=== PATIENT | female | born 1990 | race African-American/Black ===

== ENCOUNTER 2023-11-19 05:54 | Inpatient (IN) | payer OTHER, MEDICAID, SELFPAY ==
[2023-11-19] VITALS (70 sets, daily range): BP systolic 101–143; BP diastolic 49–99; PULSE 74–99; RESP 16–19; TEMP 36.3–36.8; O2SAT 97–100; BMI 24.3
[2023-11-19 06:56] LABS: Basophils Percent Auto 0.4 % (0.2-1.2); Eosinophils Absolute Auto 0.1 K/mm3 (0-0.3); Eosinophils Percent Auto 1.7 % (0-4.4); Hematocrit 27.8 % (37.0-47.0); Hemoglobin 8.9 g/dL (12.0-15.0); Immature Granulocyte Absolute 0.07 K/mm3 (0.00-0.031); Immature Granulocyte Percent A 0.8 % (0-0.5); Lymphocytes Absolute Auto 2.19 K/mm3 (0.9-3.2); Lymphocytes Percent Auto 26.2 % (18.3-44.2); Mean Corpuscular Volume 78.1 fl (80-100); Mean Platelet Volume 10.4 fl (7.4-10.4); Monocytes Absolute Auto 0.8 K/mm3 (0.1-0.6); Monocytes Percent Auto 9.7 % (2.6-8.5); Neutrophils Absolute Auto 5.1 K/mm3 (1.3-6.7); Neutrophils Percent Auto 61.2 % (45.5-73.1); Platelet Count Result 260 k/mm3 (150-375); Red Blood Count 3.56 M/mm3 (4.2-5.4); Red Cell Distribution Width 13.5 % (11.5-14.5); White Blood Count 8.4 K/mm3 (4.5-10.0)
--- NOTE | 2023-11-19 07:13 | WPDOBADMIT ---
Obstetrics - Admit Note Admission Note: record reviewed. No pertinent additions to the history and/or any subsequent changes in the physical findings that are not consistent with the expected course of the were found. Additions to the history and/or subsequent changes in the physical findings follow. IOL, cholestasis, SVE 2-3/60/-3 AROM, moderate amount of clear/bloody fluid, bright light negative, bedside US vertex, anticipate vaginal delivery
[2023-11-19] MEDS: OXYTOCIN 30 UNITS/NS 500 ML 30 UNITS/500 ML BAG IV CONT (07:49)
[2023-11-19] MEDS: LACTATED RINGERS 1,000 ML 125 ML IV CONT (07:50)
[2023-11-19] MEDS: IRON SUCROSE COMPLEX 400 MG in SODIUM CHLORIDE 0.9% IV 250 ML 108 MG IVPB (08:25)
--- NOTE | 2023-11-19 10:54 | PM.OBPNLAB ---
Pain Control Date/time seen: 11/19/23 10:54 at pt bs to evaluate, pt no longer bleeding, no blood on pad, discussed pt case with dr. payne and then pt. lower hemoglobin will hang blood after above note called into room for decreased heart tones, cervical exam revealed large blood clots in vagina, dr. payne called and pt moved to OR, discussed with pt need for section
--- NOTE | 2023-11-19 11:51 | P.PCNOB_ITS ---
OB - Delivery Note Procedure Delivery date: 11/19/23 Pre-op diagnosis: Placental Abruption and Other (cholestasis) Post-op Diagnosis: Same Induction method: Per Pitocin Protocol Delivery augmentation: Rupture of Membranes Delivery monitor: External FHT and External Uterine Prior to decision for section, ACOG/SMFM labor guidelines were considered and discussed with the patient and staff. Decision made to proceed with the section.: Yes Procedure Performed: Primary Primary branch: low cervical, transverse Surgeon: Sergio Duffy MD Anesthesia type: General Description of Procedure/Findings: Called by CNM regarding persistent bradycardia and concern for placental abruption. The decision to proceed with emergent c section was made and discussed with patient by CNM. The patient was taken to the operating room where she was placed in the dorsal supine position with a leftward tilt. The electronic monitor was placed and heart rate was found to be reassuring. She was prepped and draped in the normal sterile fashion, and general anesthesia was initiated. A Pfannenstiel skin incision was made with the scalpel and carried through to the underlying layer of fascia with the scalpel. The fascia was incised in the midline and the incision extended laterally bluntly. The rectus muscles were then in the midline, and the peritoneum entered bluntly. The peritoneal incision was extended superiorly and inferiorly with good visualization of the bladder. A Couvelaire appearing uterus was encountered on entrance into the abdomen. The lower uterine segment was incised in a transverse fashion with the scalpel. The uterine incision was then extended laterally. The infant's head was elevated and delivered atraumatically. The remainder of the was then delivered without difficulty, and the 's nose and mouth were suctioned with the bulb suction. The umbilical cord was doubly clamped and cut. The was then handed off to the waiting nursing staff. Specimens then obtained as listed below. The placenta was then removed manually and the uterus was exteriorized and cleared of all clots and debris. The uterine incision was repaired with 0- Monocryl in a running, interlocked fashion. A second layer of the same suture was used to imbricate and ensure hemostasis. The posterior cul-de-sac was manually cleared of all clots and debris. The uterus was returned to the abdomen. The gutters were then manually cleared of all clots and debris.? The uterine incision was visualized to be hemostatic. The fascia was reapproximated with 0-Vicryl in a running fashion. The subcutaneous tissues were irrigated with warmed normal saline, and hemostasis was assured. The skin was closed with 4-0 monocryl in a running subcuticular stitch. Fundal pressure was applied to express remaining intrauterine clots and debris. The patient tolerated the procedure well. Sponge, lap, and needle counts were correct times three per nursing. The patient was taken to the recovery room in stable condition. Specimen: Yes Estimated Blood Loss: 950 Pathology: Yes Complications: No immediate complications Condition: Stable Disposition: Floor [place] Baby Date of : 11/19/23 Weeks of gestation at delivery: 36 gender: Female presentation: vertex Placenta delivery description: Expressed
--- NOTE | 2023-11-19 11:59 | WPDHPUPDATE1 ---
History and Physical Update Update Date/Time: 11/19/23 11:59 History and Physical has been reviewed, including an updated exam of the patient. There are NO changes in the patient's condition. Risks, benefits, and alternatives have been discussed and questions answered. Patient agrees to proceed with procedure.
--- NOTE | 2023-11-19 12:00 | PM.IMHP ---
H&P: HPI History of Present Illness Date/Time: 11/19/23 12:00 Chief Complaint: vaginal bleeding during MIL for cholestasis of Narrative: Patient presented for MIL for cholestasis of , started with pitocin and augmented with AROM. Per CNM, bloody fluid encountered on AROM. FHR category I after AROM. Alerted that patient had passed 470ml blood clot with no continued bleeding. On SVE by CNM, large amount of blood clots were encountered. A bradycardia was noted and was unresolved with IUR. Review of Systems Review of Systems: All systems reviewed & are unremarkable except as noted in HPI and below PMFSH Family History Family History Mother Breast cancer Social History Social History Smoking status: Never smoker Second hand tobacco smoke exposure: No Substance use: never Do You Feel Safe in your Home?: Yes Lack of Transportation: No Lack of Food: Never True Current Housing: I Have Housing Concerned About Future Housing: No Difficulty Paying Gas/Electric Bills: No Difficulty Paying for Meds: No Currently Unemployed: No Education: Bachelor's Degree Difficulty w/ Childcare or Family Care: No Spiritual care concerns: No Meds Home Medications and Allergies Home Medications Medication Instructions Recorded Confirmed Type ursodiol 300 mg capsule 300 mg PO TID 11/15/23 11/15/23 History valacyclovir 500 mg tablet 500 mg PO Q12H 11/15/23 11/15/23 History (Valtrex) Allergies Allergy/AdvReac Type Severity Reaction Status Date / Time No Known Allergies Allergy Verified 11/15/23 13:40 Vital Signs Vital Signs - 24 hr 11/19/23 07:07 11/19/23 07:14 11/19/23 07:29 Pulse Rate 79 76 78 Blood Pressure 126/80 119/70 121/73 Oxygen Delivery 11/19/23 07:45 11/19/23 07:59 11/19/23 08:14 Pulse Rate 77 90 84 Blood Pressure 124/70 118/74 120/72 Oxygen Delivery 11/19/23 08:29 11/19/23 08:44 11/19/23 08:59 Pulse Rate 80 80 74 Blood Pressure 124/72 116/62 122/71 Oxygen Delivery 11/19/23 09:14 11/19/23 09:29 11/19/23 09:45 Pulse Rate 83 79 87 Blood Pressure 123/74 119/67 101/49 L Oxygen Delivery 11/19/23 09:59 11/19/23 10:15 11/19/23 10:29 Pulse Rate 83 82 77 Blood Pressure 119/80 117/78 113/70 Oxygen Delivery 11/19/23 10:44 11/19/23 09:50 Pulse Rate 78 Blood Pressure 105/60 Oxygen Delivery Room Air H&P: Results Labs Labs: Short CBC 11/19/23 Range/Units 06:35 WBC 8.4 (4.5-10.0) K/mm3 Hgb 8.9 L (12.0-15.0) g/dL Hct 27.8 L (37.0-47.0) % Plt Count 260 (150-375) k/mm3 Assessment and Plan Assessment and plan (1) Placental abruption: Qualifiers: Trimester: third trimester Qualified Code(s): O45.93 - Premature separation of placenta, unspecified, third trimester Code(s): O45.90 - Premature separation of placenta, unspecified, unspecified trimester Status: Acute Assessment and Plan: - concern for placental abruption given large amount of blood clots and bradycardia - decision made to proceed wtih emergent c section (2) bradycardia during labor: Status: Acute Assessment and Plan: - terminal bradycardia, not improved with intrauterine resuscitation - decision made to proceed with emergent c section - will undergo general anesthesia
[2023-11-19] MEDS: LIDOCAINE 5% PATCH 1 PATCH TRANSDERM (12:45)
[2023-11-19] MEDS: HYDROmorphon 0.2MG/ML PCA(*CRX 6 MG/30 ML PCA.VIAL IV CONT (12:49)
--- NOTE | 2023-11-19 13:26 | WPDANESEPPF ---
Anes - Initial Pre Proc Eval Procedure: Operation Date: 11/19/23 10:55 Proposed Procedures p Section - Sergio Duffy MD Date/Time: 11/19/23 13:27 Surgeon: Claribel Maradiaga MD Pre Op Diagnosis: IOL Patient Data Age: 33 Gender: F Height: 1.68 m Weight: 68.5 kg Last Vital Signs Pulse 78 11/19/23 12:59 Resp 19 11/19/23 12:49 BP 122/84 11/19/23 12:59 Pulse Ox 99 11/19/23 13:25 O2 Del Method Room Air 11/19/23 09:50 Allergies Allergy/AdvReac Type Severity Reaction Status Date / Time No Known Allergies Allergy Verified 11/15/23 13:40 Home Medications Medication Instructions Recorded Confirmed Type ursodiol 300 mg capsule 300 mg PO TID 11/15/23 11/15/23 History valacyclovir 500 mg tablet 500 mg PO Q12H 11/15/23 11/15/23 History (Valtrex) Laboratory Tests 11/19/23 06:35 WBC 8.4 K/mm3 (4.5-10.0) RBC 3.56 L M/mm3 (4.2-5.4) Hgb 8.9 L g/dL (12.0-15.0) Hct 27.8 L % (37.0-47.0) MCV 78.1 L fl (80-100) MCH 25.0 L pg (26-34) MCHC 32.0 g/dl (32-36) RDW 13.5 % (11.5-14.5) Plt Count 260 k/mm3 (150-375) MPV 10.4 fl (7.4-10.4) Immature Gran % (Auto) 0.8 H % (0-0.5) Neut % (Auto) 61.2 % (45.5-73.1) Lymph % (Auto) 26.2 % (18.3-44.2) Holmes % (Auto) 9.7 H % (2.6-8.5) Eos % (Auto) 1.7 % (0-4.4) Baso % (Auto) 0.4 % (0.2-1.2) Lymph # (Auto) 2.19 K/mm3 (0.9-3.2) Holmes # (Auto) 0.8 H K/mm3 (0.1-0.6) Eos # (Auto) 0.1 K/mm3 (0-0.3) Baso # (Auto) 0.0 K/mm3 (0.0-0.1) Abs Immat Gran (auto) 0.07 H K/mm3 (0.00-0.031) Absolute Neuts (auto) 5.1 K/mm3 (1.3-6.7) Absolute Nucleated RBC 0.000 K/mm3 (0.0-0.012) Nucleated RBC % 0.0 % (0.0-0.2) RPR Pending Blood Type A Positive Antibody Screen Negative Crossmatch See Detail Patient hx anesthesia problems: none Family hx anesthesia problems: none Results Review: All pre-operative results and documents have been reviewed as part of the pre-operative evaluation. [facility] Family History Family History Mother Breast cancer Social History Social History Smoking status: Never smoker Second hand tobacco smoke exposure: No Substance use: never Do You Feel Safe in your Home?: Yes Lack of Transportation: No Lack of Food: Never True Current Housing: I Have Housing Concerned About Future Housing: No Difficulty Paying Gas/Electric Bills: No Difficulty Paying for Meds: No Currently Unemployed: No Education: Bachelor's Degree Difficulty w/ Childcare or Family Care: No Spiritual care concerns: No Anes - Eval Final PreProcedure Day of Procedure 11/19/23 13:27 Patient weight: normal Airway: Mallampati scale class II Neurological: alert and oriented ASA classification: II Emergent: yes Anesthetic plan: proceed Anesthesia type and monitoring: general and standard monitoring Results Review: All pre-operative results and documents have been reviewed as part of the pre-operative evaluation. Emergency C section for placental abruption, dec FHT. Pt without epidural, emergent GA. This note entered late due to emergent nature of C section. Informed Consent: The patient's anesthetic plan and its attendant risks and benefits were discussed with the patient/family/POA. Questions were solicited and answers provided to the satisfaction of the patient/family/POA.
[2023-11-19] MEDS: HYDROmorphon 0.2MG/ML PCA(*CRX 6 MG/30 ML PCA.VIAL 1 MG IV CONT ×2 (14:00→23:50)
--- NOTE | 2023-11-19 16:52 | OBPPTRN ---
1521 Patient transferred to post room #286 via stretcher. Support person present. Oriented to unit, room, information board, rooming in, admission packet and security measures. Patient verbalizes understanding.
[2023-11-19 17:14] LABS: Rapid Plasma Reagin Non-Reactive (NonReactive)
[2023-11-19] MEDS: DEXTROSE 5%/0.45% SOD CHL 1,000 ML 125 ML IV CONT (17:23)
[2023-11-19] MEDS: KETOROLAC 15 MG/ML VIAL (*BKC) IV PUSH ×2 (17:31→23:44)
[2023-11-19] MEDS: POLYSACCHARIDE IRON COMPLEX 150 MG CAPSULE PO (17:32)
[2023-11-19] MEDS: DOCUSATE SODIUM 100 MG CAPSULE PO (17:33)
[2023-11-19] MEDS: ACETAMINOPHEN 325 MG TABLET 650 MG PO ×2 (17:34→23:44)
[2023-11-19 18:18] LABS: Basophils Percent Auto 0.2 % (0.2-1.2); Eosinophils Absolute Auto 0.1 K/mm3 (0-0.3); Eosinophils Percent Auto 0.3 % (0-4.4); Immature Granulocyte Absolute 0.14 K/mm3 (0.00-0.031); Immature Granulocyte Percent A 0.7 % (0-0.5); Lymphocytes Absolute Auto 2.38 K/mm3 (0.9-3.2); Lymphocytes Percent Auto 12.1 % (18.3-44.2); Mean Corpuscular Hemoglobin 26.1 pg (26-34); Mean Corpuscular Volume 81.4 fl (80-100); Mean Platelet Volume 10.5 fl (7.4-10.4); Monocytes Absolute Auto 1.3 K/mm3 (0.1-0.6); Monocytes Percent Auto 6.3 % (2.6-8.5); Neutrophils Absolute Auto 15.9 K/mm3 (1.3-6.7); Neutrophils Percent Auto 80.4 % (45.5-73.1); Platelet Count Result 211 k/mm3 (150-375); Red Blood Count 3.07 M/mm3 (4.2-5.4); Red Cell Distribution Width 14.6 % (11.5-14.5); White Blood Count 19.7 K/mm3 (4.5-10.0)
[2023-11-19] MEDS: ursodioL 300 MG CAPSULE PO (22:41)
[2023-11-20] VITALS (18 sets, daily range): BP systolic 111–137; BP diastolic 60–87; PULSE 79–102; RESP 16–18; TEMP 36.6–37.8; O2SAT 99–100
[2023-11-20] MEDS: KCL 20 MEQ/D5/0.45% SOD CHL 1,000 ML 125 ML IV CONT (02:30)
[2023-11-20] MEDS: KETOROLAC 15 MG/ML VIAL (*BKC) IV PUSH (05:31)
[2023-11-20] MEDS: ACETAMINOPHEN 325 MG TABLET 650 MG PO ×3 (05:31→19:22)
[2023-11-20 07:00] LABS: Basophils Percent Auto 0.2 % (0.2-1.2); Eosinophils Absolute Auto 0.2 K/mm3 (0-0.3); Eosinophils Percent Auto 0.9 % (0-4.4); Hematocrit 21.2 % (37.0-47.0); Immature Granulocyte Absolute 0.16 K/mm3 (0.00-0.031); Immature Granulocyte Percent A 0.9 % (0-0.5); Lymphocytes Absolute Auto 2.22 K/mm3 (0.9-3.2); Lymphocytes Percent Auto 12.4 % (18.3-44.2); Mean Corpuscular HGB Conc 31.6 g/dl (32-36); Mean Corpuscular Hemoglobin 26.1 pg (26-34); Mean Corpuscular Volume 82.5 fl (80-100); Mean Platelet Volume 10.2 fl (7.4-10.4); Monocytes Absolute Auto 1.4 K/mm3 (0.1-0.6); Neutrophils Percent Auto 77.6 % (45.5-73.1); Nucleated Red Blood Cells Perc 0.2 % (0.0-0.2); Platelet Count Result 199 k/mm3 (150-375); Red Blood Count 2.57 M/mm3 (4.2-5.4)
[2023-11-20 07:28] LABS: Hemoglobin 6.7 g/dL (12.0-15.0)
--- NOTE | 2023-11-20 07:59 | PM.OBPNVD ---
OB - PN: Subj Subjective Date/time seen: 11/20/23 07:59 Interval history: pp day 1 pain well controlled bottle/breast feeding flatus present correa catheter in place OB - PN: Obj Data Labs 11/20/23 06:54 Labs: Laboratory Results - last 24 hr 11/19/23 11/19/23 11/20/23 06:35 18:06 06:54 WBC 19.7 H 18.0 H RBC 3.07 L 2.57 L Hgb 8.0 L 6.7 L* Hct 25.0 L 21.2 L MCV 81.4 82.5 MCH 26.1 26.1 MCHC 32.0 31.6 L RDW 14.6 H 14.0 Plt Count 211 199 MPV 10.5 H 10.2 Immature Gran % (Auto) 0.7 H 0.9 H Neut % (Auto) 80.4 H 77.6 H Lymph % (Auto) 12.1 L 12.4 L Madison % (Auto) 6.3 8.0 Eos % (Auto) 0.3 0.9 Baso % (Auto) 0.2 0.2 Lymph # (Auto) 2.38 2.22 Madison # (Auto) 1.3 H 1.4 H Eos # (Auto) 0.1 0.2 Baso # (Auto) 0.0 0.0 Abs Immat Gran (auto) 0.14 H 0.16 H Absolute Neuts (auto) 15.9 H 14.0 H Absolute Nucleated RBC 0.000 0.040 H Nucleated RBC % 0.0 0.2 RPR Non-reactive Blood Type A Positive Antibody Screen Negative Crossmatch See Detail OB - PN A/P Plan day: 1 Comments: discussed with pt and will give 2 units RBC, co-managing with dr. payne Time Spent With Patient Time: Total time spent is greater than 50% in coordination of care (as documented) at patient's floor/unit and/or counseling patient: Review of Systems Review of Systems: All systems reviewed & are unremarkable except as noted in HPI and below Exam Const: General: cooperative and healthy appearing Resp: Effort & Inspection: normal respiratory effort Cardio: Rate: regular rate GI: Other: Incision CDI : Other: fundus firm 1 below Skin: General skin exam: normal color Neuro: General: patient oriented x3 Extrem: Other: SCD's on bilateral legs Psych: Appearance: grossly normal
--- NOTE | 2023-11-20 09:24 | WPDANLDPN2 ---
Anes-Prog Note L&D Date/Time: 11/20/23 09:24 Neuro status: Neuro function grossly intact. Cardiovascular status: normal Respiratory status: normal Airway patency: baseline Mental status: baseline Post-Op hydration status: normal Vital Signs: Last Vital Signs Temp 36.7 C 11/20/23 07:55 Pulse 90 11/20/23 07:55 Resp 16 11/20/23 08:10 BP 111/68 11/20/23 07:55 Pulse Ox 99 11/20/23 07:55 O2 Del Method Room Air 11/19/23 20:00 O2 Flow Rate 10 11/19/23 12:45 Pain score (VAS): 0 patient did not have neuraxial anesthesia but pain is well controlled with ice packs, lidocaine patch and oral meds. I/O: Intake & Output 11/19/23 11/20/23 11/20/23 23:59 07:59 15:59 Intake Total 779 1650 0 Output Total 1380 700 Balance -601 950 0 Post-procedural complaints: none Patient feedback: Patient satisfied with anesthetic care.
[2023-11-20] MEDS: DOCUSATE SODIUM 100 MG CAPSULE PO ×2 (10:00→16:23)
[2023-11-20] MEDS: POLYSACCHARIDE IRON COMPLEX 150 MG CAPSULE PO ×2 (10:00→16:22)
[2023-11-20] MEDS: ursodioL 300 MG CAPSULE PO ×3 (10:00→19:22)
[2023-11-20] MEDS: SIMETHICONE 80 MG TAB.CHEW PO ×2 (10:00→16:23)
[2023-11-20] MEDS: MULTIVIT/MIN/PREN/FOL AC/IRON TABLET 1 TAB PO (10:55)
[2023-11-20] MEDS: HYDROcodone/acetaminophen (*CRX) 5-325 MG TABLET 1 TAB PO ×3 (10:55→22:16)
--- NOTE | 2023-11-20 11:28 | PC.NURSE ---
On 11/20/23, the student, Sue Harmon, provided care and completed [facility] documentation on this patient. I have reviewed the student's documentation and agree with the findings.
[2023-11-20] MEDS: IBUPROFEN 600 MG TABLET PO ×2 (13:47→19:22)
--- NOTE | 2023-11-20 16:36 | PC.NURSE ---
[id number] Introductions were made, then consulted with patient to assess needs related to . Discussed with mother her?plans to feed?her (36 EGA) , the?experience so far, her history with her first child with a good milk supply that never went away and the fact that she is supplementing after each with bottled formula. mother shared that infant is latching great with no pain and demonstrates hand expressing colostrum. Resources provided for inpatient and outpatient services with the feeding sheet, mom/baby guide and name written on the communication board. Mother voiced understanding of information, mother instructed to call for a assessment. [phone] Purposefully rounded to assess for needs and mother is having a difficult time waking to breastfeed. Demonstrated stimulating and waking with a diaper change. Encouraged understanding of the benefits of skin to skin (demonstrating unwrapping infant and placing upright on her chest), stimulating with massage touch, changing positions to encourage wakefulness, how to watch for early feeding cues, responsive feeding, feeding on demand (aiming for 8-12 times in 24 hours, about every 2-3 hours), milk production, hand expression (5mls expressed onto a spoon) building/maintaining a milk supply, duration of feeding, signs of adequate intake/output and how to record on the feeding sheet. Mother works well with her infant with encouragement and education. We began to spoon feed yellow breast milk to infant with a spoon. Mother shared that she feels a heaviness and thinks her milk has come in. Infant stooled a copious meconium and maternal mother held the spoon of colostrum while another void and stool diaper is changed. Finished spoon feeding , then reviewed positioning and ear, shoulder, hip alignment, supporting the breast to facilitate a deep latch, asymmetrical latch (off-center), leading with the chin with a big, open, wide gape and body close to mother. latched optimally to the left breast in football position. Education given to the mother of how to visualize the suckling (with good rocking jaw motion), swallows (dropping of the lower jaw) and how to listen for drinking at the breast (the ka sound) which demonstrated with a 1:1 suck/swallow ratios. Infant was able to maintain latch without pain to mother protecting the nipple with optimal positioning and latching. Reviewed comfort measures of healing with a warm, wet washcloth to rinse breast, then leave open to air-dry, good handwashing when or touching the breast/nipples to prevent infection. Mother voiced understanding of skin to skin, stimulating with massage touch, responsive feedings, hand expressed colostrum, talking to infant to encourage if it has been 2 -2.5 hours since the start of the last , to call if does not latch, or if there is discomfort with . Resources used for education were facilitated with the visual educational handouts/ tool/mom and baby guide. Inpatient/outpatient resources provided with feeding sheet, name written on the communication board, and the mom/baby guide. Parents voiced understanding of information, demonstrated learning and will call if there is a request for assistance. Reported to the Primary RN. [id number] - Called [facility] and reported consult, copious breastmilk swallows on the left breast. No supplementing with formula at this time. With blood sugars maintained with and IV D10 infusion there is no need to supplement with formula unless hypoglycemia policy determines a change in the feeding plan. [phone] Discussed the conversation with Dr. Sales with parents and Primary RN is present. Infant is demonstrating feeding cues, mother is responsive to hunger signs and was effectively latched to the right breast using
[2023-11-20] MEDS: LIDOCAINE 5% PATCH 1 PATCH TRANSDERM (19:21)
[2023-11-21] MEDS: ACETAMINOPHEN 325 MG TABLET 650 MG PO ×4 (01:20→22:19)
[2023-11-21] MEDS: IBUPROFEN 600 MG TABLET PO ×4 (01:20→22:19)
[2023-11-21] MEDS: HYDROcodone/acetaminophen (*CRX) 10-325 MG TABLET 1 TAB PO (05:15)
[2023-11-21] MEDS: MULTIVIT/MIN/PREN/FOL AC/IRON TABLET 1 TAB PO (08:14)
[2023-11-21] MEDS: POLYSACCHARIDE IRON COMPLEX 150 MG CAPSULE PO ×2 (08:14→20:00)
[2023-11-21] MEDS: DOCUSATE SODIUM 100 MG CAPSULE PO ×2 (08:14→15:53)
[2023-11-21] MEDS: SIMETHICONE 80 MG TAB.CHEW PO ×3 (08:15→16:47)
--- NOTE | 2023-11-21 08:39 | PM.OBPNVD ---
OB - PN: Subj Subjective Date/time seen: 11/21/23 08:39 Interval history: pp day 1 pain well controlled bottle/breast feeding flatus present correa catheter in place Patient comments: no complaints, pain well controlled, incisional pain, tolerating diet and flatus present OB - PN: Obj Data Labs 11/20/23 06:54 Labs: Laboratory Results - last 24 hr 11/19/23 06:35 Blood Type A Positive Antibody Screen Negative Crossmatch See Detail OB - PN A/P Plan day: 2 Plan: routine care Comments: POD#2 LTCS - no problems, Time Spent With Patient Time: Total time spent is greater than 50% in coordination of care (as documented) at patient's floor/unit and/or counseling patient: Exam Const: General: comfortable, no acute distress and alert Resp: Effort & Inspection: normal respiratory effort Auscultation: no crackles, no rales and no rhonchi Cardio: Rate: regular rate Heart sounds: no click, no murmurs and no rubs GI: Inspection: non-distended Auscultation: normal bowel sounds Other: Incision - CDI Extrem: General: normal to inspection, no pedal edema and no calf tenderness
[2023-11-21 08:45] VITALS: BP 118/71; PULSE 91; RESP 16; TEMP 37.4; O2SAT 100
--- NOTE | 2023-11-21 13:18 | PC.NURSE ---
[id number] Mother verbalizes she is able to independently latch with appropriate positioning and alignment. She denies any nipple discomfort and is responsively and shared infant just completed a 17 minute on the left breast. Infant is content and there's no nipple misshaping after detach. Infant is currently meeting outcomes for weight, output, jaundice, blood sugar (along with D 10 IVF's infusing) and feeding frequencies of 8-12 times in 24 hours. Mother declines any additional assistance or education at this time. Mother is encouraged to call for assistance if her doesn?t latch, pain with latching, latch assessment, questions or concerns. Mother voiced understanding of information shared along with the mom/baby guide for an additional resource. Reported to the Primary RN.
[2023-11-21] MEDS: HYDROcodone/acetaminophen (*CRX) 5-325 MG TABLET 1 TAB PO ×2 (13:37→23:50)
[2023-11-21 20:30] VITALS: BP 114/74; PULSE 99; RESP 16; TEMP 37.2; O2SAT 100
[2023-11-21] MEDS: LIDOCAINE 5% PATCH 1 PATCH TOPICAL (23:50)
[2023-11-22] MEDS: IBUPROFEN 600 MG TABLET PO ×2 (05:35→11:31)
[2023-11-22] MEDS: ACETAMINOPHEN 325 MG TABLET 650 MG PO ×2 (05:35→11:32)
--- NOTE | 2023-11-22 07:28 | PM.OBPNVD ---
OB - PN: Subj Subjective Date/time seen: 11/22/23 07:28 Interval history: pp day 3 pain well controlled bottle/breast feeding flatus present plan d/c but will remain no care bed/ baby will stay OB - PN: Obj Data Labs 11/20/23 06:54 OB - PN A/P Plan day: 3 Plan: routine care and discharge home Time Spent With Patient Time: Total time spent is greater than 50% in coordination of care (as documented) at patient's floor/unit and/or counseling patient: Review of Systems Review of Systems: All systems reviewed & are unremarkable except as noted in HPI and below Exam Const: General: cooperative and healthy appearing Chest: Chest palpation & inspection: normal inspection of the chest Resp: Effort & Inspection: normal respiratory effort GI: Other: Incision CDI Skin: General skin exam: normal color
--- NOTE | 2023-11-22 07:56 | PM.OBDSVD ---
DS: Admitting Diagnosis Discharge Date 11/22/23 Admitting Diagnosis cholestasis, IOL DS: Discharge Diagnosis Discharge Diagnosis (1) Delivery by section: Status: Acute OB - DS: Summary OB Procedures : None OB Procedures Intrapartum: OB Procedures: : Transfusion Peripartum Data Procedures: Procedures Operation Date: 11/19/23 10:55 Actual Procedure Side Surgeon p Section Sergio Duffy MD Time Spent with Patient Time attestation: Total time spent providing and/or coordinating discharge services: DS: Data Data Completed and Pending Completed studies during hospitalization: Pending at discharge 11/19/23 13:25 Surgical [PTH] Routine Discharge Plan Discharge Attending physician on discharge: Sergio Duffy Discharging Clinician: Kierra Lugo Patient Disposition: Home, Self-Care Activity: pelvic rest Diet: regular Patient Instructions: Antibiotic Form Stand Alone Forms: General Discharge Information Follow-up/Referrals: Kierra Lugo, CNM [Primary Care Provider] - 1 Week Discharge Medications: New hydrocodone-acetaminophen 5-325 mg Tablet 1 tablet PO Q3H PRN (Reason: Pain Rated 4-6) Qty: 20 0RF Discontinued valacyclovir [Valtrex] 500 mg Tablet 500 mg PO Q12H ursodiol 300 mg Capsule 300 mg PO TID Date of admission: 11/19/23 05:54 Primary Care Provider: Kierra Lugo Admitting Provider: Claribel Maradiaga Attending physician on admission: Claribel Maradiaga Condition: Stable
[2023-11-22] MEDS: POLYSACCHARIDE IRON COMPLEX 150 MG CAPSULE PO (08:00)
[2023-11-22] MEDS: SIMETHICONE 80 MG TAB.CHEW PO ×2 (08:00→11:31)
[2023-11-22] MEDS: DOCUSATE SODIUM 100 MG CAPSULE PO (08:00)
[2023-11-22] MEDS: MULTIVIT/MIN/PREN/FOL AC/IRON TABLET 1 TAB PO (08:00)
[2023-11-22 08:24] VITALS: BP 122/82; PULSE 89; RESP 20; TEMP 36.7; O2SAT 97
[2023-11-22 08:48] LABS: Basophils Percent Auto 0.1 % (0.2-1.2); Eosinophils Absolute Auto 0.2 K/mm3 (0-0.3); Eosinophils Percent Auto 1.5 % (0-4.4); Hematocrit 24.4 % (37.0-47.0); Hemoglobin 7.9 g/dL (12.0-15.0); Immature Granulocyte Absolute 0.12 K/mm3 (0.00-0.031); Immature Granulocyte Percent A 0.8 % (0-0.5); Lymphocytes Absolute Auto 1.75 K/mm3 (0.9-3.2); Lymphocytes Percent Auto 12.3 % (18.3-44.2); Mean Corpuscular HGB Conc 32.4 g/dl (32-36); Mean Corpuscular Hemoglobin 26.8 pg (26-34); Mean Corpuscular Volume 82.7 fl (80-100); Mean Platelet Volume 9.7 fl (7.4-10.4); Monocytes Absolute Auto 0.7 K/mm3 (0.1-0.6); Monocytes Percent Auto 5.1 % (2.6-8.5); Neutrophils Absolute Auto 11.4 K/mm3 (1.3-6.7); Neutrophils Percent Auto 80.2 % (45.5-73.1); Nucleated Red Blood Cells Perc 0.4 % (0.0-0.2); Platelet Count Result 231 k/mm3 (150-375); Red Blood Count 2.95 M/mm3 (4.2-5.4); Red Cell Distribution Width 14.8 % (11.5-14.5); White Blood Count 14.2 K/mm3 (4.5-10.0)
--- NOTE | 2023-11-22 10:38 | PC.NURSE ---
[id number] Consulted with mother concerning needs and she shared her ability to independently latch infant optimally without pain. Mother is feeding appropriately for growth of infant and understands stimulating to eat if needed. Infant has had appropriate feedings in the last 24 hours meets the outcomes for weight, output, blood sugar and jaundice at this time. Reinforced understanding of milk production, transition of milk, signs of adequate intake, transition of stool, prevention/relief of engorgement, plugged ducts, mastitis, responsive watching for feeding cues, the different methods of stimulating to breastfeed 1-3 hours after the start of the last feeding, community resources, and when to call a provider and services using the resource of the feeding sheet along with the mom and baby guide. Mother voiced understanding of the information shared, is confident to continue effectively her infant at home, when to call for assistance, denies any additional assistance or education at this time. Primary RN is present in the room at the end of the consult.
[2023-11-23 08:43] VITALS: BP 132/80; PULSE 81; RESP 20; TEMP 36.9
== END 2023-11-22 11:45 | disposition home or self-care (01) | DRG 786 ==
LOC: ANHLDR 11:08 → ANHOB2 15:32
PROVIDERS: Obstetrics & Gynecology; Admitting Provider Obstetrics & Gynecology; PCP Advanced Practice Midwife; Visit Provider Obstetrics & Gynecology
PROC: 10D00Z1 Extraction of Products of Conception, Low, Open Approach (ICD-10-PCS; CPT 59514; principal; 2023-11-19 10:55)
DX: O26.643 Intrahepatic cholestasis of pregnancy, third trimester (principal); O45.93 Premature separation of placenta, unspecified, third trimester; Z3A.36 36 weeks gestation of pregnancy; Z37.0 Single live birth; O36.8330 Maternal care for abnormalities of the fetal heart rate or rhythm, third trimester, not applicable or unspecified
CPT/HCPCS: 36415; 36430; 85025; 86592; 86850; 86900; 86901; 86923; 88307; A9270; J0330; J0690; J1170; J1756; J1885; J2210; J2274; J2590; J2704; J3480; J7050; J7120; P9016